=== PATIENT | female | born 1980 | race Caucasian/White ===

== ENCOUNTER 2017-12-02 15:53 | Emergency (ER) | payer OTHER, MEDICAID, SELFPAY ==
--- NOTE | 2017-12-02 16:14 | ED.ABDPAIN ---
HPI - Abdominal Pain General Chief Complaint: Abdominal Pain Stated Complaint: thinks blockage in abdomen Time Seen by Provider: 12/02/17 16:05 Source: patient Mode of arrival: ambulatory Limitations: no limitations History of Present Illness HPI narrative: Patient presents to the emergency department with a chief complaint 1 month of dysuria, frequency and urgency. Additionally she has generalized abdominal cramping and a sensation of vaginal fullness. She states she has had multiple visits and evaluations for suspected UTI, she has been on antibiotics without any resolution of symptoms. She states she does not think any of her urines have noted bacterial infection. She denies any chest pain shortness of breath or other. She has had no vaginal bleeding or discharge MD complaint: abdominal pain Onset (ago): hour(s) Pain Consistency: constant Location: diffuse Severity: mild Quality: cramping Radiation: none Migration to: no migration Relieving factors: nothing Exacerbating factors: nothing Context: recent surgery/procedure Associated symptoms: nausea Related Data Home Medications Medication Instructions Recorded Confirmed 5hpt 1 dose PO DAILY 12/02/17 12/02/17 Azo Bladder Control 1 dose PO DIRECTED 12/02/17 12/02/17 Turmeric Sootheeze 1 dose PO DIRECTED 12/02/17 12/02/17 ciprofloxacin HCl 500 mg PO BID 12/02/17 12/02/17 cranberry 1 cap PO DAILY 12/02/17 12/02/17 Allergies Allergy/AdvReac Type Severity Reaction Status Date / Time No Known Drug Allergies Allergy Verified 12/02/17 17:11 Review of Systems Review of Systems All systems reviewed & are unremarkable except as noted in HPI and below Constitutional Denies chills, Denies fever(s), Denies lethargy and Denies weakness Eyes Denies change in vision, Denies eye discharge, Denies irritation and Denies loss of vision ENT Ears, Nose, Mouth, and Throat: Denies change in voice, Denies neck pain and Denies sore throat Cardiovascular Denies chest pain, Denies irregular heart rhythm, Denies lightheadedness, Denies palpitations, Denies dyspnea, Denies dyspnea on exertion and Denies orthopnea Respiratory Denies cough, Denies dyspnea, Denies dyspnea on exertion and Denies wheezing Gastrointestinal Gastrointestinal: Reports abdominal pain, Reports change in bowel habits, Reports nausea and Denies vomiting Genitourinary Denies hematuria, Reports prolapse symptoms, Denies flank pain, Denies urinary incontinence and Reports urinary urgency Musculoskeletal Denies neck pain Integumentary/Breasts Denies pruritus, Denies erythema, Denies rash and Denies wounds Neurologic Denies confusion, Denies loss of vision and Denies weakness Psychiatric Denies anxiety, Denies confusion, Denies depression, Denies homicidal ideation and Denies suicidal ideation Endocrine Denies palpitations Hematologic/Lymphatic Denies easy bruising Allergic/Immunologic Denies wheezing [facility] Social History Smoking Status: Current every day smoker Exam Initial Vital Signs Initial Vital Signs: Vital Signs Temperature 98.4 F 12/02/17 16:23 Pulse Rate 104 H 12/02/17 16:23 Respiratory Rate 16 12/02/17 16:23 Blood Pressure 132/93 H 12/02/17 16:23 Pulse Oximetry 100 12/02/17 16:23 Const General: cooperative, well developed and in distress Nutritional Appearance: well nourished Orientation: alert, awake, oriented x3 and not confused HENMT Head: normocephalic and atraumatic Ears: external ears normal and TM's normal bilaterally Nose: external nose normal and No nasal discharge Face and sinus: sinuses nontender, face symmetric, no sinus tenderness and No dry mucous membranes Mouth: oral mucosae normal and moist mucous membranes Teeth and gingiva: dentition normal Throat: tonsils normal and uvula midline Eyes General: appearance normal, both eyes and all related structures Eyelids: eyelids normal Conjunctivae: conjunctivae normal Sclera: sclerae normal Pupils: PERRL EOM: EOM intact bilaterally Chest Chest: normal inspection of the chest Cardio Rate: regular rate Rhythm: regular rhythm Heart Sounds: no click, no gallops, no murmurs and no rubs Pulses: normal peripheral pulses GI Inspection: non-distended Palpation: soft, no hepatosplenomegaly, No guarding, No pulsatile mass and tender Auscultation: hypoactive bowel sounds Speculum Exam - Vagina: vaginal mass (suspect cystocele) Skin General: no rashes or lesions noted, No jaundice and No petechiae Extrem General: full ROM, no clubbing, cyanosis or edema, no pedal edema and no calf tenderness Course Orders Ordered: ED Orders 12/02/17 16:40 XR acute abdomen series Stat 12/02/17 17:10 Complete Blood Count AUTO DIFF Stat Comprehensive Metabolic Panel Stat Discontinued Medications Sodium Chloride (Normal Saline 0.9%) 1,000 mls @ 1,000 mls/hr IV BOLUS ONE Stop: 12/02/17 17:38 Last Admin: 12/02/17 17:10 Dose: 1,000 mls/hr Vital Signs - 8 hr 12/02/17 16:23 12/02/17 17:45 Temperature 98.4 F Pulse Rate 104 H 81 Respiratory Rate 16 18 Blood Pressure 132/93 H Blood Pressure [Right Arm] 114/64 Pulse Oximetry 100 100 MDM - Abdominal Pain Differential Diagnosis Differential diagnosis: Likely abdominal pain, constipation and gastroenteritis Medical Records Attestation: I reviewed the patient's medical records. Lab Data Attestation: I reviewed the patient's lab results. Result diagrams: 12/02/17 17:10 12/02/17 17:10 Lab Results 12/02/17 12/02/17 Range/Units 17:10 17:10 WBC 10.7 (4.5-11.0) X10^3/uL RBC 4.59 (4.0-5.2) X10^6/uL Hgb 14.0 (12.0-16.0) g/dL Hct 40.5 (36-46) % MCV 88.2 (80-100) fL MCH 30.5 (26-34) PG MCHC 34.6 (30-36) % RDW 13.4 (11.6-14.8) % Plt Count 349 (150-400) X10^3/uL Neut % (Auto) 69.7 (50-75) % Lymph % (Auto) 23.2 L (25-40) % [place] % (Auto) 4.0 (3-14) % Eos % (Auto) 2.2 (2-4) % Baso % (Auto) 0.9 (0-2) % Neut # (Auto) 7500 H (2400-6704) /uL Sodium 142 (137-145) mmol/L Potassium 4.0 (3.4-5.1) mmol/L Chloride 104 (98-107) mmol/L Carbon Dioxide 28 (22-32) mmol/L BUN 7 (7-17) mg/dL Creatinine 0.70 (0.52-1.04) mg/dL Estimated GFR > 60.0 (>60) mL/min BUN/Creatinine Ratio 10.0 (6-22) Glucose 88 (70-100) mg/dL Calcium 9.4 (8.4-10.2) mg/dL Total Bilirubin 0.7 (0.2-1.3) mg/dL AST 26 (14-36) IU/L ALT 31 (9-52) IU/L Alkaline Phosphatase 53 (38-126) U/L Total Protein 8.0 (6.3-8.2) g/dL Albumin 4.5 (3.5-5.0) g/dL Globulin 3.5 (1.7-4.1) g/dL Albumin/Globulin Ratio 1.3 (1.0-2.8) Point of care testing: Point of Care Testing Test Results Negative Urine Dip Bedside Urine Glucose Negative Bedside Urine Bilirubin - Negative Bedside Urine Ketone - Negative Urine Specific [place] 1.030 Bedside Urine Occult Blood + Bedside Urine pH 6.0 Bedside Urine Protein - Negative Bedside Urine Urobilinogen - Negative Bedside Urine Nitrite - Negative Bedside Urine Leukocytes - Negative Esterase Discharge Plan Departure Patient Disposition: Home Clinical Impression: Cystocele, Constipation Instructions: Cystocele/Rectocele Activity Restrictions/Additional Instructions: *You have been diagnosed with [ dysuria and likely cystocele with constipation ] *What to do: *Follow up with Dr. Jones in 2-3 days, call for an appointment. Let them know you were seen in the Emergency Department and that we ask that you be seen in follow up *Return to ER if you should have any new, worsening or concerning symptoms, such as [increasing pain, fever over 101 F, persistent vomiting, or other bothersome symptoms ] Prescriptions: No Action ciprofloxacin HCl 500 mg tablet 500 mg PO BID RF: 0 5hpt 1 dose PO DAILY RF: 0 Azo Bladder Control 1 dose PO DIRECTED RF: 0 cranberry 1 cap PO DAILY RF: 0 Turmeric Sootheeze 1 dose PO DIRECTED RF: 0 Referrals: Denise Jones MD [Primary Care Provider] -
[2017-12-02 16:23] VITALS: BP 132/93; PULSE 104; RESP 16; TEMP 36.9; O2SAT 100; BMI 48.5
--- NOTE | 2017-12-02 16:40 | DI.RAD.S_ITS ---
PROCEDURE: XR ACUTE ABDOMEN SERIES INDICATIONS: Abdominal pain TECHNIQUE: One view chest and two views of the abdomen were acquired. COMPARISON: None. FINDINGS: Surgical changes and devices: None. Chest: Lungs are clear. Heart size is normal. No pleural effusions. No pneumoperitoneum. Abdomen: Bowel gas pattern is normal. No suspicious calcifications. Visualized solid organ contours appear normal. Bones: No suspicious bony lesions. IMPRESSION: Nonspecific bowel gas pattern, and no definite acute disease. Dictated by: Darrel Taveras M.D. on 12/02/2017 at 17:01 Approved by: Darrel Taveras M.D. on 12/02/2017 at 17:01
[2017-12-02] MEDS: SODIUM CHLORIDE 0.9% 1,000 ML 1000 ML IV (17:10)
[2017-12-02 17:21] LABS: Add Manual Diff / Slide Review NO; Basophils Percent Auto 0.9 % (0-2); Eosinophils Percent Auto 2.2 % (2-4); Hematocrit 40.5 % (36-46); Lymphocytes Percent Auto 23.2 % (25-40); Mean Corpuscular HGB Conc 34.6 % (30-36); Mean Corpuscular Hemoglobin 30.5 PG (26-34); Mean Corpuscular Volume 88.2 fL (80-100); Neutrophils Absolute Auto 7500 /uL (3000-5900); Neutrophils Percent Auto 69.7 % (50-75); Platelet Count 349 X10^3/uL (150-400); Red Blood Cell Count 4.59 X10^6/uL (4.0-5.2); Red Cell Distribution Width 13.4 % (11.6-14.8); White Blood Cell Count 10.7 X10^3/uL (4.5-11.0)
[2017-12-02 17:30] LABS: Alanine Aminotransferase 31 IU/L (9-52); Albumin 4.5 g/dL (3.5-5.0); Albumin Globulin Ratio 1.3 (1.0-2.8); Alkaline Phosphatase 53 U/L (38-126); Aspartate Aminotransferase 26 IU/L (14-36); Bilirubin Total 0.7 mg/dL (0.2-1.3); Blood Urea Nitrogen 7 mg/dL (7-17); Calcium 9.4 mg/dL (8.4-10.2); Carbon Dioxide 28 mmol/L (22-32); Chloride 104 mmol/L (98-107); Estimated Glomerular Filt Rate > 60.0 mL/min (>60); Globulin 3.5 g/dL (1.7-4.1); Glucose 88 mg/dL (70-100); HEMOLYSIS 45 (0-50); Sodium 142 mmol/L (137-145)
[2017-12-02 17:45] VITALS: BP 114/64; PULSE 81; RESP 18; O2SAT 100
[2017-12-02 19:22] VITALS: BP 145/88; PULSE 87; RESP 16; TEMP 36.7; O2SAT 99
== END 2017-12-02 19:47 | disposition home or self-care (01) ==
PROVIDERS: Emergency Provider Emergency Medicine; PCP Obstetrics & Gynecology
DX: N81.10 Cystocele, unspecified (principal); K59.00 Constipation, unspecified
CPT/HCPCS: 36415; 36591; 74022; 80053; 81003; 81025; 85025; 96360; 99283; 99284

== ENCOUNTER 2018-02-19 12:00 | Emergency (ER) | payer OTHER, MEDICAID, SELFPAY ==
[2018-02-19 12:05] VITALS: BP 154/99; PULSE 93; RESP 20; TEMP 37.1; O2SAT 100; BMI 49.4
[2018-02-19 13:00] VITALS: BP 142/74; PULSE 78; O2SAT 100
--- NOTE | 2018-02-19 13:06 | DI.US.S_ITS ---
PROCEDURE: US PELVIC COMPLETE INDICATIONS: lower abd pain, bloating TECHNIQUE: Real-time scanning was performed of the pelvic organs, with image documentation. Additional endovaginal scanning was necessary due to incomplete visualization of the adnexal and endometrial structures by transabdominal scanning. COMPARISON: None. FINDINGS: Transabdominal scanning: Limited scanning through the kidneys shows no hydronephrosis. No pathologic free abdominal or pelvic fluid. Endovaginal scanning: Uterus: Uterus is normal in size at 10.7 x 5.1 x 7.4 cm. The endometrium measures 17 mm in combined thickness. Ovaries: Right ovary measures 3.1 x 2.1 x 2.1 cm. Left ovary measures 2.9 x 1.9 x 2.3 cm. Ovaries are grossly unremarkable IMPRESSION: Unremarkable examination as above. Dictated by: Nathaniel Osborn M.D. on 02/19/2018 at 14:13 Approved by: Nathaniel Osborn M.D. on 02/19/2018 at 14:15
[2018-02-19] MEDS: KETOROLAC 60 MG/2 ML VIAL IM (13:12)
[2018-02-19] MEDS: ONDANSETRON 4 MG ODT PO (13:13)
[2018-02-19 13:29] LABS: Add Manual Diff / Slide Review NO; Eosinophils Percent Auto 3.1 % (2-4); Hematocrit 40.8 % (36-46); Hemoglobin 13.9 g/dL (12.0-16.0); Lymphocytes Percent Auto 26.8 % (25-40); Mean Corpuscular HGB Conc 34.1 % (30-36); Mean Corpuscular Hemoglobin 28.9 PG (26-34); Mean Corpuscular Volume 84.9 fL (80-100); Monocytes Percent Auto 6.1 % (3-14); Neutrophils Absolute Auto 6200 /uL (3000-5900); Platelet Count 289 X10^3/uL (150-400); Red Cell Distribution Width 13.4 % (11.6-14.8); White Blood Cell Count 9.9 X10^3/uL (4.5-11.0)
[2018-02-19 13:45] LABS: Alanine Aminotransferase 26 IU/L (9-52); Albumin 4.4 g/dL (3.5-5.0); Albumin Globulin Ratio 1.3 (1.0-2.8); Alkaline Phosphatase 53 U/L (38-126); Amylase 59 U/L (30-110); Aspartate Aminotransferase 17 IU/L (14-36); BUN Creatinine Ratio 11.3 (6-22); Bilirubin Total 0.3 mg/dL (0.2-1.3); Blood Urea Nitrogen 9 mg/dL (7-17); Carbon Dioxide 29 mmol/L (22-32); Chloride 103 mmol/L (98-107); Estimated Glomerular Filt Rate > 60.0 mL/min (>60); Globulin 3.3 g/dL (1.7-4.1); Glucose 81 mg/dL (70-100); HEMOLYSIS < 15 (0-50); Lipase 54 U/L (23-300); Potassium 4.3 mmol/L (3.4-5.1); Sodium 144 mmol/L (137-145); Total Protein 7.7 g/dL (6.3-8.2)
--- NOTE | 2018-02-19 14:17 | ED.ABDPAIN ---
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 She states she is not sure if it is anxiety but she feels as though she cannot take the pain anymore. She states she had an in office ultrasound a few days ago and they found thickened endometrium. She states she is also being worked up for possible cervical cancer. She denies any fevers, nausea, vomiting, diarrhea. She complains of chills, lower belly bloating. She has not taken anything at home to feel better. She states her last bowel movement was this morning. She complains of dysuria but thinks it might be due to her prolapse. She denies any urgency or frequency or flank pain. Patient states she is passing gas. Related Data Home Medications Medication Instructions Recorded Confirmed 5hpt 1 dose PO DAILY 12/02/17 02/16/18 cranberry 1 cap PO DAILY 12/02/17 02/16/18 Previous Rx's Medication Instructions Recorded ondansetron 4 mg PO TID-QID PRN #14 tab 02/19/18 tramadol 50 mg PO Q6H PRN #10 tab 02/19/18 Allergies Allergy/AdvReac Type Severity Reaction Status Date / Time No Known Drug Allergies Allergy Verified 02/16/18 14:45 Review of Systems <LOIDA Monet - Last Filed: 02/19/18 15:54> Review of Systems GENERAL: Denies chills, fatigue, malaise, fever, sweats. HEENT: Denies sinus pain, ear pain, sore throat, difficulty swallowing, dizziness. RESPIRATORY: Denies dyspnea, cough, wheezing, hemoptysis, sputum. CARDIOVASCULAR: Denies chest pain, palpitations, orthopnea, edema, GASTROINTESTINAL: See HPI : See HPI MUSCULOSKELETAL: denies weakness, joint pain, or bony pain SKIN: Denies rash, skin lesions, or other NEUROLOGIC: Denies weakness, headache, numbness, change in speech, confusion, seizures, incoordination. PSYCHIATRIC: No concerning psychosocial issues. 12 point review of systems is negative except for those stated above Exam <ANTHONY Monet - Last Filed: 02/19/18 15:54> Narrative Exam Narrative: GENERAL: Obese female in no apparent distress HEAD: Atraumatic. Normocephalic. No temporal or scalp tenderness. EYES: Pupils equal round and reactive. Extraocular motions intact. No scleral icterus. No injection or drainage. ENT: Nose without bleeding, purulent drainage or septal hematoma. Throat without erythema, tonsillar hypertrophy or exudate. Uvula midline. Airway patent. NECK: Trachea midline. No JVD or lymphadenopathy. Supple, nontender, no meningeal signs. CARDIOVASCULAR: Regular rate and rhythm without murmurs, gallops, or rubs. RESPIRATORY: Clear to auscultation. Breath sounds equal bilaterally. No wheezes, rales, or rhonchi. No cough or accessory muscle use on exam. GASTROINTESTINAL: Abdomen soft, diffusely tender, nondistended. No hepato-splenomegaly, or palpable masses. No guarding. No pulsatile mass. Active bowel sounds all 4 quadrants. Pain to palpation suprapubic area, right lower quadrant, left lower quadrant. EXTREMITIES: No clubbing, cyanosis, or edema. No joint tenderness, effusion, or edema noted. BACK: Nontender without deformity or crepitance. No flank tenderness. NEURO: AOx3. SKIN: No rash or erythema. Initial Vital Signs Initial Vital Signs: Vital Signs Temperature 98.8 F 02/19/18 12:05 Pulse Rate 93 H 02/19/18 12:05 Respiratory Rate 20 02/19/18 12:05 Blood Pressure 154/99 H 02/19/18 12:05 Pulse Oximetry 100 02/19/18 12:05 <Zehra Mena DO - Last Filed: 02/22/18 08:45> Initial Vital Signs Initial Vital Signs: Vital Signs Temperature 98.8 F 02/19/18 12:05 Pulse Rate 93 H 02/19/18 12:05 Respiratory Rate 20 02/19/18 12:05 Blood Pressure 154/99 H 02/19/18 12:05 Pulse Oximetry 100 02/19/18 12:05 Course <ANTHONY Monet - Last Filed: 02/19/18 15:54> Orders Ordered: Discontinued Medications Ketorolac Tromethamine (Toradol) 60 mg IM NOW ONE Stop: 02/19/18 13:05 Last Admin: 02/19/18 13:12 Dose: 60 mg Ondansetron HCl (Zofran Odt) 4 mg PO NOW ONE Stop: 02/19/18 13:05 Last Admin: 02/19/18 13:13 Dose: 4 mg Tramadol HCl (Ultram) 50 mg PO NOW ONE Stop: 02/19/18 14:18 Last Admin: 02/19/18 14:31 Dose: 50 mg Vital Signs - 8 hr 02/19/18 12:05 02/19/18 13:00 02/19/18 14:42 Temperature 98.8 F Pulse Rate 93 H 78 79 Respiratory Rate 20 14 Blood Pressure 154/99 H Blood Pressure [Left Arm] 142/74 H 131/84 Pulse Oximetry 100 100 100 02/19/18 14:45 Temperature 98.2 F Pulse Rate 78 Respiratory Rate 21 Blood Pressure 131/84 Blood Pressure [Left Arm] Pulse Oximetry 100 <Zehra Mena DO - Last Filed: 02/22/18 08:45> Orders Ordered: Discontinued Medications Ketorolac Tromethamine (Toradol) 60 mg IM NOW ONE Stop: 02/19/18 13:05 Last Admin: 02/19/18 13:12 Dose: 60 mg Ondansetron HCl (Zofran Odt) 4 mg PO NOW ONE Stop: 02/19/18 13:05 Last Admin: 02/19/18 13:13 Dose: 4 mg Tramadol HCl (Ultram) 50 mg PO NOW ONE Stop: 02/19/18 14:18 Last Admin: 02/19/18 14:31 Dose: 50 mg Vital Signs - 8 hr 02/19/18 12:05 02/19/18 13:00 02/19/18 14:42 Temperature 98.8 F Pulse Rate 93 H 78 79 Respiratory Rate 20 14 Blood Pressure 154/99 H Blood Pressure [Left Arm] 142/74 H 131/84 Pulse Oximetry 100 100 100 02/19/18 14:45 Temperature 98.2 F Pulse Rate 78 Respiratory Rate 21 Blood Pressure 131/84 Blood Pressure [Left Arm] Pulse Oximetry 100 MDM - Abdominal Pain <ANTHONY Monet - Last Filed: 02/19/18 15:54> Lab Data Result diagrams: 02/19/18 13:25 02/19/18 13:25 Lab Results 02/19/18 02/19/18 Range/Units 13:25 13:25 WBC 9.9 (4.5-11.0) X10^3/uL RBC 4.80 (4.0-5.2) X10^6/uL Hgb 13.9 (12.0-16.0) g/dL Hct 40.8 (36-46) % MCV 84.9 (80-100) fL MCH 28.9 (26-34) PG MCHC 34.1 (30-36) % RDW 13.4 (11.6-14.8) % Plt Count 289 (150-400) X10^3/uL Neut % (Auto) 63.0 (50-75) % Lymph % (Auto) 26.8 (25-40) % Nash % (Auto) 6.1 (3-14) % Eos % (Auto) 3.1 (2-4) % Baso % (Auto) 1.0 (0-2) % Neut # (Auto) 6200 H (9047-9554) /uL Sodium 144 (137-145) mmol/L Potassium 4.3 (3.4-5.1) mmol/L Chloride 103 (98-107) mmol/L Carbon Dioxide 29 (22-32) mmol/L BUN 9 (7-17) mg/dL Creatinine 0.80 (0.52-1.04) mg/dL Estimated GFR > 60.0 (>60) mL/min BUN/Creatinine Ratio 11.3 (6-22) Glucose 81 (70-100) mg/dL Calcium 9.0 (8.4-10.2) mg/dL Total Bilirubin 0.3 (0.2-1.3) mg/dL AST 17 (14-36) IU/L ALT 26 (9-52) IU/L Alkaline Phosphatase 53 (38-126) U/L Total Protein 7.7 (6.3-8.2) g/dL Albumin 4.4 (3.5-5.0) g/dL Globulin 3.3 (1.7-4.1) g/dL Albumin/Globulin Ratio 1.3 (1.0-2.8) Amylase 59 (30-110) U/L Lipase 54 (23-300) U/L Point of care testing: Urine Dip Bedside Urine Glucose Negative Bedside Urine Bilirubin - Negative Bedside Urine Ketone - Negative Urine Specific [place] 1.015 Bedside Urine Occult Blood - Negative Bedside Urine pH 7.0 Bedside Urine Protein - Negative Bedside Urine Urobilinogen - Negative Bedside Urine Nitrite - Negative Bedside Urine Leukocytes - Negative Esterase Imaging Data pelvic US: Radiologist's impression: [address] [address] Ultrasound Report Signed Patient: Sophie Berg [facility]#: [id number] : 1980Acct:[id number] Age/Sex: 37 / FDate of Service: 02/19/18 Loc: ED Accession Number: [id number] Procedure: US pelvic complete Ordering Provider: Zehra Muniz WARRANT CLERK- PROCEDURE: US PELVIC COMPLETE INDICATIONS: lower abd pain, bloating TECHNIQUE: Real-time scanning was performed of the pelvic organs, with image documentation. Additional endovaginal scanning was necessary due to incomplete visualization of the adnexal and endometrial structures by transabdominal scanning. COMPARISON: None. FINDINGS: Transabdominal scanning: Limited scanning through the kidneys shows no hydronephrosis. No pathologic free abdominal or pelvic fluid. Endovaginal scanning: Uterus: Uterus is normal in size at 10.7 x 5.1 x 7.4 cm. The endometrium measures 17 mm in combined thickness. Ovaries: Right ovary measures 3.1 x 2.1 x 2.1 cm. Left ovary measures 2.9 x 1.9 x 2.3 cm. Ovaries are grossly unremarkable IMPRESSION: Unremarkable examination as above. Dictated by: Nathaniel Osborn M.D. on 02/19/2018 at 14:13 Approved by: Nathaniel Osborn M.D. on 02/19/2018 at 14:[address] [facility] Narrative Medical decision making narrative: Patient is a 37-year-old female who presents with chief complaint of lower abdominal bloating and pain. This is been going on for months but she feels worse over the past few days. She had normal CBC, CMP, amylase and lipase. She had a negative UA. Her pelvic ultrasound did not show any acute etiology. I did not perform a pelvic exam on this patient as she had one a few days ago. We discussed the possibility of STIs and she declined STI testing. Her primary care provider has been working up this sensation of bloating, and she has additional outpatient imaging ordered for Wednesday. I do not see any acute etiology today. Thus I discharged the patient home with a prescription of tramadol as well as Zofran for nausea. She is hemodynamically stable, nontoxic appearing, and acting well in the emergency department. Discussed return precautions of severe pain, acute concerns. <Zehra Mena, DO - Last Filed: 02/22/18 08:45> Lab Data Lab Results 02/19/18 02/19/18 Range/Units 13:25 13:25 WBC 9.9 (4.5-11.0) X10^3/uL RBC 4.80 (4.0-5.2) X10^6/uL Hgb 13.9 (12.0-16.0) g/dL Hct 40.8 (36-46) % MCV 84.9 (80-100) fL MCH 28.9 (26-34) PG MCHC 34.1 (30-36) % RDW 13.4 (11.6-14.8) % Plt Count 289 (150-400) X10^3/uL Neut % (Auto) 63.0 (50-75) % Lymph % (Auto) 26.8 (25-40) % Nash % (Auto) 6.1 (3-14) % Eos % (Auto) 3.1 (2-4) % Baso % (Auto) 1.0 (0-2) % Neut # (Auto) 6200 H (8720-9668) /uL Sodium 144 (137-145) mmol/L Potassium 4.3 (3.4-5.1) mmol/L Chloride 103 (98-107) mmol/L Carbon Dioxide 29 (22-32) mmol/L BUN 9 (7-17) mg/dL Creatinine 0.80 (0.52-1.04) mg/dL Estimated GFR > 60.0 (>60) mL/min BUN/Creatinine Ratio 11.3 (6-22) Glucose 81 (70-100) mg/dL Calcium 9.0 (8.4-10.2) mg/dL Total Bilirubin 0.3 (0.2-1.3) mg/dL AST 17 (14-36) IU/L ALT 26 (9-52) IU/L Alkaline Phosphatase 53 (38-126) U/L Total Protein 7.7 (6.3-8.2) g/dL Albumin 4.4 (3.5-5.0) g/dL Globulin 3.3 (1.7-4.1) g/dL Albumin/Globulin Ratio 1.3 (1.0-2.8) Amylase 59 (30-110) U/L Lipase 54 (23-300) U/L Point of care testing: Urine Dip Bedside Urine Glucose Negative Bedside Urine Bilirubin - Negative Bedside Urine Ketone - Negative Urine Specific [place] 1.015 Bedside Urine Occult Blood - Negative Bedside Urine pH 7.0 Bedside Urine Protein - Negative Bedside Urine Urobilinogen - Negative Bedside Urine Nitrite - Negative Bedside Urine Leukocytes - Negative Esterase Discharge Plan Departure Patient Disposition: Home Clinical Impression: Abdominal pain Discharge Date/Time: 02/19/18 14:47 Interventions: ED Discharge Assessment Last Done: 02/19/18 14:45 Instructions: DI for Abdominal Pain-Adult Activity Restrictions/Additional Instructions: I do not see any acute etiology today at this point time. Please follow-up with primary care provider regarding their continued imaging and workup. I have given her a small prescription of tramadol for pain. The aware this can make you constipated and sedating so please do not take it dry. I am giving Zofran as needed for nausea. Come back to emergency department for any acute pain, fever inability keep down fluids or any acute concerns. Please follow-up with your primary care provider. Prescriptions: New tramadol 50 mg tablet 50 mg PO Q6H PRN (Reason: pain) Qty: 10 RF: 0 ondansetron 4 mg tablet,disintegrating 4 mg PO TID-QID PRN (Reason: nausea and vomiting) Qty: 14 RF: 0 No Action 5hpt 1 dose PO DAILY RF: 0 cranberry 1 cap PO DAILY RF: 0 Referrals: Lindsey Tineo PA-C [Primary Care Provider] - <Zehra Mena DO - Last Filed: 02/22/18 08:45> Cosign ED Attending Cosignature Attestation: I was immediately available in the department for consultation. This documentation has been reviewed and I agree with assessment and plan. Supervised by Zehra Mena DO
--- NOTE | 2018-02-19 14:20 | ED_ITS ---
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 She states she is not sure if it is anxiety but she feels as though she cannot take the pain anymore. She states she had an in office ultrasound a few days ago and they found thickened endometrium. She states she is also being worked up for possible cervical cancer. She denies any fevers, nausea, vomiting, diarrhea. She complains of chills, lower belly bloating. She has not taken anything at home to feel better. She states her last bowel movement was this morning. She complains of dysuria but thinks it might be due to her prolapse. She denies any urgency or frequency or flank pain. Patient states she is passing gas. Related Data Home Medications Medication Instructions Recorded Confirmed 5hpt 1 dose PO DAILY 12/02/17 02/16/18 cranberry 1 cap PO DAILY 12/02/17 02/16/18 Previous Rx's Medication Instructions Recorded ondansetron 4 mg PO TID-QID PRN #14 tab 02/19/18 tramadol 50 mg PO Q6H PRN #10 tab 02/19/18 Allergies Allergy/AdvReac Type Severity Reaction Status Date / Time No Known Drug Allergies Allergy Verified 02/16/18 14:45 Review of Systems <LOIDA Monet - Last Filed: 02/19/18 15:54> Review of Systems GENERAL: Denies chills, fatigue, malaise, fever, sweats. HEENT: Denies sinus pain, ear pain, sore throat, difficulty swallowing, dizziness. RESPIRATORY: Denies dyspnea, cough, wheezing, hemoptysis, sputum. CARDIOVASCULAR: Denies chest pain, palpitations, orthopnea, edema, GASTROINTESTINAL: See HPI : See HPI MUSCULOSKELETAL: denies weakness, joint pain, or bony pain SKIN: Denies rash, skin lesions, or other NEUROLOGIC: Denies weakness, headache, numbness, change in speech, confusion, seizures, incoordination. PSYCHIATRIC: No concerning psychosocial issues. 12 point review of systems is negative except for those stated above Exam <ANTHONY Monet - Last Filed: 02/19/18 15:54> Narrative Exam Narrative: GENERAL: Obese female in no apparent distress HEAD: Atraumatic. Normocephalic. No temporal or scalp tenderness. EYES: Pupils equal round and reactive. Extraocular motions intact. No scleral icterus. No injection or drainage. ENT: Nose without bleeding, purulent drainage or septal hematoma. Throat without erythema, tonsillar hypertrophy or exudate. Uvula midline. Airway patent. NECK: Trachea midline. No JVD or lymphadenopathy. Supple, nontender, no meningeal signs. CARDIOVASCULAR: Regular rate and rhythm without murmurs, gallops, or rubs. RESPIRATORY: Clear to auscultation. Breath sounds equal bilaterally. No wheezes , rales, or rhonchi. No cough or accessory muscle use on exam. GASTROINTESTINAL: Abdomen soft, diffusely tender, nondistended. No hepato- splenomegaly, or palpable masses. No guarding. No pulsatile mass. Active bowel sounds all 4 quadrants. Pain to palpation suprapubic area, right lower quadrant , left lower quadrant. EXTREMITIES: No clubbing, cyanosis, or edema. No joint tenderness, effusion, or edema noted. BACK: Nontender without deformity or crepitance. No flank tenderness. NEURO: AOx3. SKIN: No rash or erythema. Initial Vital Signs Initial Vital Signs: Vital Signs Temperature 98.8 F 02/19/18 12:05 Pulse Rate 93 H 02/19/18 12:05 Respiratory Rate 20 02/19/18 12:05 Blood Pressure 154/99 H 02/19/18 12:05 Pulse Oximetry 100 02/19/18 12:05 <Zehra Mena DO - Last Filed: 02/22/18 08:45> Initial Vital Signs Initial Vital Signs: Vital Signs Temperature 98.8 F 02/19/18 12:05 Pulse Rate 93 H 02/19/18 12:05 Respiratory Rate 20 02/19/18 12:05 Blood Pressure 154/99 H 02/19/18 12:05 Pulse Oximetry 100 02/19/18 12:05 Course <ANTHONY Monet - Last Filed: 02/19/18 15:54> Orders Ordered: Discontinued Medications Ketorolac Tromethamine (Toradol) 60 mg IM NOW ONE Stop: 02/19/18 13:05 Last Admin: 02/19/18 13:12 Dose: 60 mg Ondansetron HCl (Zofran Odt) 4 mg PO NOW ONE Stop: 02/19/18 13:05 Last Admin: 02/19/18 13:13 Dose: 4 mg Tramadol HCl (Ultram) 50 mg PO NOW ONE Stop: 02/19/18 14:18 Last Admin: 02/19/18 14:31 Dose: 50 mg Vital Signs - 8 hr 02/19/18 12:05 02/19/18 13:00 02/19/18 14:42 Temperature 98.8 F Pulse Rate 93 H 78 79 Respiratory Rate 20 14 Blood Pressure 154/99 H Blood Pressure [Left Arm] 142/74 H 131/84 Pulse Oximetry 100 100 100 02/19/18 14:45 Temperature 98.2 F Pulse Rate 78 Respiratory Rate 21 Blood Pressure 131/84 Blood Pressure [Left Arm] Pulse Oximetry 100 <Zehra Mena DO - Last Filed: 02/22/18 08:45> Orders Ordered: Discontinued Medications Ketorolac Tromethamine (Toradol) 60 mg IM NOW ONE Stop: 02/19/18 13:05 Last Admin: 02/19/18 13:12 Dose: 60 mg Ondansetron HCl (Zofran Odt) 4 mg PO NOW ONE Stop: 02/19/18 13:05 Last Admin: 02/19/18 13:13 Dose: 4 mg Tramadol HCl (Ultram) 50 mg PO NOW ONE Stop: 02/19/18 14:18 Last Admin: 02/19/18 14:31 Dose: 50 mg Vital Signs - 8 hr 02/19/18 12:05 02/19/18 13:00 02/19/18 14:42 Temperature 98.8 F Pulse Rate 93 H 78 79 Respiratory Rate 20 14 Blood Pressure 154/99 H Blood Pressure [Left Arm] 142/74 H 131/84 Pulse Oximetry 100 100 100 02/19/18 14:45 Temperature 98.2 F Pulse Rate 78 Respiratory Rate 21 Blood Pressure 131/84 Blood Pressure [Left Arm] Pulse Oximetry 100 MDM - Abdominal Pain <ANTHONY Monet - Last Filed: 02/19/18 15:54> Lab Data Result diagrams: 02/19/18 13:25 02/19/18 13:25 Lab Results 02/19/18 02/19/18 Range/Units 13:25 13:25 WBC 9.9 (4.5-11.0) X10^3/uL RBC 4.80 (4.0-5.2) X10^6/uL Hgb 13.9 (12.0-16.0) g/dL Hct 40.8 (36-46) % MCV 84.9 (80-100) fL MCH 28.9 (26-34) PG MCHC 34.1 (30-36) % RDW 13.4 (11.6-14.8) % Plt Count 289 (150-400) X10^3/uL Neut % (Auto) 63.0 (50-75) % Lymph % (Auto) 26.8 (25-40) % Lynn % (Auto) 6.1 (3-14) % Eos % (Auto) 3.1 (2-4) % Baso % (Auto) 1.0 (0-2) % Neut # (Auto) 6200 H (2800-5483) /uL Sodium 144 (137-145) mmol/L Potassium 4.3 (3.4-5.1) mmol/L Chloride 103 (98-107) mmol/L Carbon Dioxide 29 (22-32) mmol/L BUN 9 (7-17) mg/dL Creatinine 0.80 (0.52-1.04) mg/dL Estimated GFR > 60.0 (>60) mL/min BUN/Creatinine Ratio 11.3 (6-22) Glucose 81 (70-100) mg/dL Calcium 9.0 (8.4-10.2) mg/dL Total Bilirubin 0.3 (0.2-1.3) mg/dL AST 17 (14-36) IU/L ALT 26 (9-52) IU/L Alkaline Phosphatase 53 (38-126) U/L Total Protein 7.7 (6.3-8.2) g/dL Albumin 4.4 (3.5-5.0) g/dL Globulin 3.3 (1.7-4.1) g/dL Albumin/Globulin Ratio 1.3 (1.0-2.8) Amylase 59 (30-110) U/L Lipase 54 (23-300) U/L Point of care testing: Urine Dip Bedside Urine Glucose Negative Bedside Urine Bilirubin - Negative Bedside Urine Ketone - Negative Urine Specific [place] 1.015 Bedside Urine Occult Blood - Negative Bedside Urine pH 7.0 Bedside Urine Protein - Negative Bedside Urine Urobilinogen - Negative Bedside Urine Nitrite - Negative Bedside Urine Leukocytes - Negative Esterase Imaging Data pelvic US: Radiologist's impression: [address] [address] Ultrasound Report Signed Patient: Sophie Berg [facility], [place]#: [id number] : 1980Acct:[id number] Age/Sex: 37 / FDate of Service: 02/19/18 Loc: ED Accession Number: [id number] Procedure: US pelvic complete Ordering Provider: Zehra Muniz AIRCRAFT PAINTER APPRENTICE- PROCEDURE: US PELVIC COMPLETE INDICATIONS: lower abd pain, bloating TECHNIQUE: Real-time scanning was performed of the pelvic organs, with image documentation. Additional endovaginal scanning was necessary due to incomplete visualization of the adnexal and endometrial structures by transabdominal scanning. COMPARISON: None. FINDINGS: Transabdominal scanning: Limited scanning through the kidneys shows no hydronephrosis. No pathologic free abdominal or pelvic fluid. Endovaginal scanning: Uterus: Uterus is normal in size at 10.7 x 5.1 x 7.4 cm. The endometrium measures 17 mm in combined thickness. Ovaries: Right ovary measures 3.1 x 2.1 x 2.1 cm. Left ovary measures 2.9 x 1.9 x 2.3 cm. Ovaries are grossly unremarkable IMPRESSION: Unremarkable examination as above. Dictated by: Nathaniel Osborn M.D. on 02/19/2018 at 14:13 Approved by: Nathaniel Osborn M.D. on 02/19/2018 at 14:15 [facility] Narrative Medical decision making narrative: Patient is a 37-year-old female who presents with chief complaint of lower abdominal bloating and pain. This is been going on for months but she feels worse over the past few days. She had normal CBC, CMP, amylase and lipase. She had a negative UA. Her pelvic ultrasound did not show any acute etiology. I did not perform a pelvic exam on this patient as she had one a few days ago. We discussed the possibility of STIs and she declined STI testing. Her primary care provider has been working up this sensation of bloating, and she has additional outpatient imaging ordered for Wednesday. I do not see any acute etiology today. Thus I discharged the patient home with a prescription of tramadol as well as Zofran for nausea. She is hemodynamically stable, nontoxic appearing, and acting well in the emergency department. Discussed return precautions of severe pain, acute concerns. <Zehra Mena, DO - Last Filed: 02/22/18 08:45> Lab Data Lab Results 02/19/18 02/19/18 Range/Units 13:25 13:25 WBC 9.9 (4.5-11.0) X10^3/uL RBC 4.80 (4.0-5.2) X10^6/uL Hgb 13.9 (12.0-16.0) g/dL Hct 40.8 (36-46) % MCV 84.9 (80-100) fL MCH 28.9 (26-34) PG MCHC 34.1 (30-36) % RDW 13.4 (11.6-14.8) % Plt Count 289 (150-400) X10^3/uL Neut % (Auto) 63.0 (50-75) % Lymph % (Auto) 26.8 (25-40) % Lynn % (Auto) 6.1 (3-14) % Eos % (Auto) 3.1 (2-4) % Baso % (Auto) 1.0 (0-2) % Neut # (Auto) 6200 H (1640-9852) /uL Sodium 144 (137-145) mmol/L Potassium 4.3 (3.4-5.1) mmol/L Chloride 103 (98-107) mmol/L Carbon Dioxide 29 (22-32) mmol/L BUN 9 (7-17) mg/dL Creatinine 0.80 (0.52-1.04) mg/dL Estimated GFR > 60.0 (>60) mL/min BUN/Creatinine Ratio 11.3 (6-22) Glucose 81 (70-100) mg/dL Calcium 9.0 (8.4-10.2) mg/dL Total Bilirubin 0.3 (0.2-1.3) mg/dL AST 17 (14-36) IU/L ALT 26 (9-52) IU/L Alkaline Phosphatase 53 (38-126) U/L Total Protein 7.7 (6.3-8.2) g/dL Albumin 4.4 (3.5-5.0) g/dL Globulin 3.3 (1.7-4.1) g/dL Albumin/Globulin Ratio 1.3 (1.0-2.8) Amylase 59 (30-110) U/L Lipase 54 (23-300) U/L Point of care testing: Urine Dip Bedside Urine Glucose Negative Bedside Urine Bilirubin - Negative Bedside Urine Ketone - Negative Urine Specific [place] 1.015 Bedside Urine Occult Blood - Negative Bedside Urine pH 7.0 Bedside Urine Protein - Negative Bedside Urine Urobilinogen - Negative Bedside Urine Nitrite - Negative Bedside Urine Leukocytes - Negative Esterase Discharge Plan Departure Patient Disposition: Home Clinical Impression: Abdominal pain Discharge Date/Time: 02/19/18 14:47 Interventions: ED Discharge Assessment Last Done: 02/19/18 14:45 Instructions: DI for Abdominal Pain-Adult Activity Restrictions/Additional Instructions: I do not see any acute etiology today at this point time. Please follow-up with primary care provider regarding their continued imaging and workup. I have given her a small prescription of tramadol for pain. The aware this can make you constipated and sedating so please do not take it dry. I am giving Zofran as needed for nausea. Come back to emergency department for any acute pain, fever inability keep down fluids or any acute concerns. Please follow-up with your primary care provider. Prescriptions: New tramadol 50 mg tablet 50 mg PO Q6H PRN (Reason: pain) Qty: 10 RF: 0 ondansetron 4 mg tablet,disintegrating 4 mg PO TID-QID PRN (Reason: nausea and vomiting) Qty: 14 RF: 0 No Action 5hpt 1 dose PO DAILY RF: 0 cranberry 1 cap PO DAILY RF: 0 Referrals: Lindsey Tineo PA-C [Primary Care Provider] - <Zehra Mena DO - Last Filed: 02/22/18 08:45> Cosign ED Attending Cosignature Attestation: I was immediately available in the department for consultation. This documentation has been reviewed and I agree with assessment and plan. Supervised by Zehra Mena DO
[2018-02-19] MEDS: TRAMADOL 50 MG TABLET PO (14:31)
[2018-02-19 14:42] VITALS: BP 131/84; PULSE 79; RESP 14; O2SAT 100
[2018-02-19 14:45] VITALS: BP 131/84; PULSE 78; RESP 21; TEMP 36.8; O2SAT 100
== END 2018-02-19 14:47 | disposition home or self-care (01) ==
PROVIDERS: Emergency Provider Nurse Practitioner Family; Family Provider Physician Assistant; PCP Physician Assistant
DX: R10.9 Unspecified abdominal pain (principal)
CPT/HCPCS: 36415; 76830; 76856; 80053; 81003; 82150; 83690; 85025; 96372; 99283; 99284; J1885

== ENCOUNTER 2018-03-28 08:48 | Day surgery (SDC) | payer OTHER, MEDICAID, SELFPAY ==
[2018-03-23 12:16] VITALS: BMI 48.0
--- NOTE | 2018-03-28 | PATH_ITS ---
[facility] Accession Number: [id number] . 01 Material submitted: . ENDOMETRIAL CURETTINGS . 02 Diagnosis: Endometrium, Curettage: Late secretory endometrium with features of endometrial polyp. Negative for atypical hyperplasia or malignancy. [facility]/03/29/2018 . 02 Electronically signed: . Jose Desir MD, PhD, Pathologist NPI- [id number] . 01 Gross description: . Received one formalin-filled container labeled with the patient's name and labeled endometrial curettings. The specimen consists of approximately a 1 cc aggregate of tissue, mucoid material, and blood, which is filtered, wrapped, and entirely submitted in one cassette. ([id number]) /FRR . 02 Pathologist provided ICD-10: N93.9 . 02 CPT . 848134 Performed at: 01 [facility] [address] [id number] MD Troy Laureano MD Phone: [phone] Performed at: 02 [facility] [address] [place], [place] [id number] MD Haylee Tierney MD Phone: [phone]
[2018-03-28] MEDS: LACTATED RINGERS 1,000 ML 100 ML IV (09:05)
[2018-03-28 09:06] VITALS: BP 127/78; PULSE 80; RESP 16; TEMP 36.6; O2SAT 97; BMI 47.7
--- NOTE | 2018-03-28 09:41 | PM.PREOP ---
Pre-operative Note Interval Note Pre-op Check: Yes History & Physical exam performed today by Physician Changes: No
--- NOTE | 2018-03-28 09:41 | PM.HP.1 ---
History of Present Illness Date Patient Seen: 03/28/18 Time Patient Seen: 09:42 Chief complaint: [id number] Narrative: Patient is a 37-year-old with abnormal uterine bleeding and a thickened endometrial lining for D&C hysteroscopy Patient History Medical History Cystocele (Acute) Mild cervical dysplasia (Acute) S/P tubal ligation (Resolved) Surgical History History of colposcopy (Acute) Family & Social History Social History: household members significant other Tobacco & Substance use: Smoking Status Current every day smoker alcohol intake frequency holiday/special occasion Substance Use Type does not use Meds Home Medications Medication Instructions Recorded Confirmed Type amoxicillin 875 mg PO BID 03/28/18 03/28/18 History hydrochlorothiazide 25 mg PO DAILY 03/28/18 03/28/18 History Allergies Allergy/AdvReac Type Severity Reaction Status Date / Time No Known Drug Allergies Allergy Verified 02/16/18 14:45 Exam Vital Signs (past 8 hours): - 03/28/18 09:06 Temperature 97.8 F Pulse Rate 80 Respiratory Rate 16 Blood Pressure 127/78 Pulse Oximetry 97 Oxygen Delivery Method Room Air Narrative Exam Narrative: HEENT: No thyromegaly, no anterior cervical or supraclavicular lymphadenopathy. Lungs:Clear to auscultation bilaterally, no wheezes. Cardiovascular: Regular rate and rhythm, no murmurs, rubs, or gallops. Abdomen: No scars. No hepatosplenomegaly. No masses palpable. External genitalia: Normal Vagina: Normal Cervix: Normal Bimanual exam: 8 Week size uterus. Mobile. Rectal: No masses. Assessment & Plan (1) Abnormal uterine bleeding: Current visit: Yes Status: Acute Plan: Assessment/Plan Narrative: Assessment: 37 year old with abnormal uterine bleeding and thickened endometrial lining Plan D&C hysteroscopy The risks, benefits, and alternatives to the procedure were explained to the patient. The risks including bleeding, infection or uterine perforation. She understands these risks and agrees to proceed. A full PAR-Q was held and consent form was signed.
--- NOTE | 2018-03-28 10:14 | SUR.OPER ---
Lithotomy on padded OR bed, head on pillow, arms secured on padded arm boards at <90 degrees abduction. Legs secured in padded yellow fins stirrups.
[2018-03-28 10:25] VITALS: BP 138/96; PULSE 99; RESP 14; TEMP 36.4; O2SAT 95
[2018-03-28 10:30] VITALS: BP 134/89; PULSE 83; RESP 16; O2SAT 95
[2018-03-28 10:35] VITALS: BP 135/86; PULSE 84; RESP 14; TEMP 36.2; O2SAT 94
[2018-03-28 10:40] VITALS: BP 129/84; PULSE 80; RESP 13; TEMP 36.3; O2SAT 94
[2018-03-28] MEDS: OXYCODONE/ACETAMINOPHEN 5/325 TABLET 1 TAB PO (11:06)
[2018-03-28] MEDS: LORazepam 2 MG/ML SYRINGE 0.5 MG IV (11:09)
[2018-03-28 11:20] VITALS: BP 112/68; PULSE 72; RESP 16; TEMP 36.8; O2SAT 100
--- NOTE | 2018-03-28 12:27 | SUR.PHASEII ---
pt was essentially ready to go home at 1120 but asked to stay a while for medications to be filled and to have less time to wait for ferrludin
--- NOTE | 2018-03-29 06:14 | PM.GYNOP.1 ---
Operative Date/Time/Diagnoses Date of procedure: 03/28/18 Time of procedure: 10:45 Pre-op diagnosis: Menometrorrhagia Thickened endometrial lining Post-op diagnosis: same Procedure: Procedures Operation Date: 03/28/18 10:00 Actual Procedures Side Surgeon p Hysteroscopy D&C Denise Jones MD Indications: Menometrorrhagia Thickened endometrial lining on ultrasound Surgeon: Denise Jones Anesthesia Type: General (LMA) Operative Notes Findings: 8 week size anteverted uterus Both fallopian tube ostia observed Thickened endometrial lining Closure Type: not applicable Specimen(s): endometrial curettings Estimated blood loss (mL): 10 Blood products transfused: none Procedure in detail: After informed consent was obtained, the patient was taken to the operating room where she was placed in the dorsal supine position. After adequate LMA general anesthesia was achieved, she was placed in the dorsal lithotomy position, and prepped and draped in the usual sterile fashion. A time-out was performed. A bivalve speculum was placed into the vagina and the anterior lip of the cervix grasped with a single-tooth tenaculum. The cervical os was sequentially dilated until the hysteroscope could pass easily into the endometrial cavity. Initial inspection with the hysteroscope revealed both fallopian tube ostia. There was a thickened endometrial lining. The hysteroscope was removed. Sharp curettage was performed yielding a large amount of endometrial curettings. The instruments were removed from the uterus. The single-tooth tenaculum was removed from the anterior lip of the cervix. [place] speculum was removed from the vagina. Sponge, lap, and instrument counts were correct x2. Patient tolerated the procedure well, and was taken to PACU in stable condition. Complications: none Post-operative Condition: stable Disposition: PACU Plan for aftercare: Home after recovery
== END 2018-03-28 12:10 | disposition home or self-care (01) ==
PROVIDERS: Family Provider Physician Assistant; PCP Physician Assistant; Visit Provider Obstetrics & Gynecology
PROC: 0UDB8ZZ Extraction of Endometrium, Via Natural or Artificial Opening Endoscopic (ICD-10-PCS; CPT 58558; principal; 2018-03-28 10:00)
DX: N92.1 Excessive and frequent menstruation with irregular cycle (principal); R93.89 Abnormal findings on diagnostic imaging of other specified body structures; F17.210 Nicotine dependence, cigarettes, uncomplicated
CPT/HCPCS: 58558; J1100; J1885; J2060; J2250; J2405; J2704; J3010

== ENCOUNTER → 2018-04-20 11:24 | Outpatient (CLI) | payer OTHER, MEDICAID, SELFPAY ==
--- NOTE | 2018-04-20 | DI.MRI.S_ITS ---
PROCEDURE: MR ABDOMEN WO/W CON INDICATIONS: LIVER NODULE SEEN ON ABD CT 02/21/18 TECHNIQUE: Coronal HASTE, axial 2D FLASH in- and [id number]; axial breath-hold T2 FSE. Dynamic axial VIBE during the administration of contrast; post-contrast coronal VIBE or 2D FLASH with fat saturation from the hepatic dome to the iliac crests. Optional diffusion weighted imaging and ADC may be performed. COMPARISON: Outside Facility, RG, CT ABDOMEN/PELVIS WITH CONTRAST, 02/21/2018, 11:05. FINDINGS: Image quality: Excellent. Lung bases: No basal pleural effusions. Heart size is normal. Solid organs: Liver is normal in size and enhancement except for presence of the right posterior hepatic segment hypoenhancing structure with elevated T2 and diffusion signal, morphologically most likely represent a small 1.8 cm hemangioma. A second smaller similar structure is seen at the subcapsular left lateral hepatic segment, with low-level internal enhancement also likely a small hemangioma. Gallbladder appears normal. Biliary system is non dilated. Pancreas is normal in morphology. Spleen is normal in size and enhancement. No adrenal nodules. Both kidneys demonstrate normal size and enhancement, without hydronephrosis. Nodes and vessels: No retroperitoneal or mesenteric adenopathy by size criteria. Aorta and inferior vena cava are normal in size. Bowel and peritoneum: Unenhanced bowel loops are normal in caliber. No free fluid. Bones and soft tissues: No ventral hernias. Bone marrow is normal in overall signal. IMPRESSION: The 1.8 cm diameter right posterior hepatic segment hypodensity seen by prior CT scanning from February of this last year can be seen by MR scanning and shows imaging characteristics suggestive of but not definitively diagnostic of a benign hepatic hemangioma as the underlying cause. A similar but significantly smaller structure measuring approximately 7 x 8 mm is seen at the anterior border of the left lateral hepatic segment, subcapsular. This does show internal enhancement on delayed phase venous imaging and likely also is a hemangioma. In this position this small structure may not be identifiable by ultrasound. Followup ultrasound assessment to confirm stability of size over time is recommended in 3-6 months, and this ultrasound assessment also would be expected to provide sonographic imaging characterization supportive of a diagnosis of hemangioma. Dictated by: Darrel Taveras M.D. on 04/20/2018 at 12:38 Approved by: Darrel Taveras M.D. on 04/20/2018 at 12:51
== END ==
PROVIDERS: Family Provider Physician Assistant; PCP Physician Assistant; Visit Provider Family Medicine
DX: K76.89 Other specified diseases of liver (principal)
CPT/HCPCS: 74183; A9579

== ENCOUNTER 2018-04-22 13:45 | Outpatient (RCR) | payer OTHER, MEDICAID, SELFPAY ==
--- NOTE | 2018-01-26 15:00 | PT.OIE ---
Current Diagnoses Uterovaginal prolapse, unspecified (01/25/18) Female genital prolapse, unspecified (01/25/18) Pelvic and perineal pain (01/25/18) Past Medical History (Last Updated 01/25/18 @ 16:25 by Lachelle Plasencia) S/P tubal ligation (Resolved) Provider Visit Care Team Role Provider Type Lindsey Tineo PA-C Family Provider Non-Staff Primary Care Provider Specialty: Medical Address: [address] [place] [address], [id number] Email: Denise Jones MD Attending Provider Physician Specialty: DISTRICT ATTORNEY Address: [address] [place] [address], [id number] Email: [email or web address] Physical Therapy Initial Evaluation PT-OP-A Visit Information Start: 01/26/18 07:38 Freq: Status: Active Protocol: Document 01/25/18 11:15 AMB (Rec: 01/26/18 07:59 AMB [email or web address]) Out-Patient Physical Therapy Visit Information Visit Information Visit Type Initial Evaluation Visit Start Time 11:15 Visit Stop Time 12:15 Total Visit Minutes 60 Visit Number 1 Evaluation Information Evaluation Date 01/26/18 PT-OP-B Current Condition Start: 01/26/18 07:38 Freq: Status: Active Protocol: Document 01/25/18 11:15 AMB (Rec: 01/26/18 07:59 AMB [email or web address]) Current Condition History of Current Condition Onset Date 2 years Current Complaints pelvic pain, frequent urination with urgency, History of Current Condition The patient reports until 5 months ago, she was using alcohol every day. She thought that her symptoms were because of that, but she has been abstaining from alcohol, and she continues to have pain and urinary frequency and urgency. She had a vaginal 8 years ago with tearing , and a tubal ligation 6 years ago. She thinks the symptoms started about 5 years ago but have been worsening. Her pain is abdominal in nature, with back pain and upper leg weakness. She reports she urinates every 45 minutes or else her pain increases (she can hold it longer than that but her pain increases). She notes stress incontinence symptoms (small leaks throughout the day with cough sneeze, worse with full bladder). She also reports painful intercourse- burning at the perineum and a deep ache abdominally. Treatment Goals Patient/Caregiver Goals Relieve pain, decrease urination Prior Functional Status Baseline Function- ADL's Independent Baseline Function- Mobility Independent Current Functional Impairments (Reported) Functional Limitations- ADL's Painful intercourse, frequent urination Personal Factors Other Personal Factors That May Effect Pt lives on [facility], BMI Therapy/Recovery 47.8 PT-OP-C Subjective Start: 01/26/18 07:38 Freq: Status: Active Protocol: Document 01/25/18 11:15 AMB (Rec: 01/26/18 14:39 AMB [email or web address]) OP-PT Subjective Patient Comments Patient Comments Pt reports heavy periods and recent abnormal pap Patient Questionnaires Pelvic Pain and Urgency/Frequency Patient Symptom Scale Pelvic Pain Score 28 OP-PT Pain Assessment Location Abdomen Intensity 4 Scale Used Numeric (1 - 10) Comments Pain Comments Pain with palpation 6/10. PT-OP-I Pelvic Floor Start: 01/26/18 07:38 Freq: Status: Active Protocol: Document 01/25/18 11:15 AMB (Rec: 01/26/18 14:32 AMB [email or web address]) Pelvic Floor Assessment Urine Pelvic Floor Surgery Yes: tubal ligation Urinary Symptoms Dysuria Urge Sensation Prolapse Incomplete Emptying Falling Out Feeling/Heavy Pain Leakage Size Small Leakage Cause Cough Sneeze Urge Leaks Per Day constant Voiding Frequency every 45 min Nocturia 4 Pads Used In 24 Hours 0 Bowel Bowel Movement Frequency 3-4x/day Emmons Stool Chart Type 1-7 4 Pelvic Clock Pelvic Clock 12-3 Tenderness Pelvic Clock 3-6 Tenderness Pelvic Clock 6-9 Tenderness Pelvic Clock 9-12 Tenderness Pelvic Clock Other pelvic floor is low in tone throughout Prolapse Cystocele Grade 2 Rectocele Grade 2 Prolapse Comments Descends with valsalva Perineal Descent Resting Present Bearing Present SEMG (uV) Baseline 4 Quick Contraction 6 Recruitment Pattern Poor/Slow Relaxation Good Stability of Hold Fair SEMG Stability of Rest Good Contraction Ability Voluntary Contraction Weak Voluntary Relaxation Moderate Manual Muscle Testing Left 1 Manual Muscle Testing Right 1 Manual Muscle Testing Anterior 1 Manual Muscle Testing Posterior 3 Muscle Endurance (Seconds) 3 PT-OP-J Posture/Palpation/Skin Start: 01/26/18 07:38 Freq: Status: Active Protocol: Document 01/25/18 11:15 AMB (Rec: 01/26/18 14:32 AMB [email or web address]) Palpation Assessment Location One Palpation Location Abdomen Palpation Findings Spasm Muscle Guarding Tenderness Palpation Details Tenderness laterally on abdomen PT-OP-T Assessment and Plan Start: 01/26/18 07:38 Freq: Status: Active Protocol: Document 01/25/18 11:15 AMB (Rec: 01/26/18 14:58 AMB [email or web address]) Physical Therapy Assessment Rehab Potential Rehabilitation Potential Good Evaluation Complexity Number of Personal Factors/Comorbidities 1-2 Number of Body Systems Impaired 4 or More Clinical Presentation at Evaluation Evolving Impairments Impairments Functional Activities Pain Soft Tissue Mobility Strength Goals Three Impairment Strength Short Term Goal (STG) The patient will be independent with a pelvic floor strengthening HEP. STG Duration 6 weeks Retirement Goal (LTG) The patient will show improved strength so that Two Impairment Continence Short Term Goal (STG) The patient will improve her continence so that she can cough without leaking. STG Duration 6 weeks Coin Machine Collector Goal (LTG) The patient will decrease her nocturia to 1x/night or less. LTG Duration 12 weeks One Impairment Pain Short Term Goal (STG) The patient will hold her bladder for 2 hours with 4/10 pain or less. STG Duration 6 weeks Retirement Goal (LTG) The patient will engage in sexual activity without urinary leakage and with pain of 4/10 or less. LTG Duration 12 weeks Assessment Summary Assessment Sophie attends physical therapy with multiple pelvic floor concerns including pelvic pain that radiates into her abdomen, prolapse, painful intercourse, urinary frequency , and stress incontinence. She presents with poor pelvic floor strength and endurance. Her abdominal pain is reproduced both by palpation to her posterior pelvic floor and to palpation of her abdomen. She will benefit from pelvic floor and hip stability training with manual therapy to reduce her pain. Her weight and the distance she lives from the PT clinic may be limiting factors. Physical Therapy Plan Frequency and Duration Frequency of Treatment 1x/Week Duration of Treatment 12 weeks Plan of Care Start Date 01/25/18 Plan of Care End Date 04/19/18 Therapeutic Interventions Therapeutic Interventions Home Exercise Program Manual Therapy Neuromuscular Re-education Self-Care/Home Management Soft Tissue Mobilization Therapeutic Activities Therapeutic Exercises Modalities Biofeedback Electric Stimulation Next Visit Focus/Plan Next Note Type Treatment Note
--- NOTE | 2018-01-26 15:01 | PT.OPPOC ---
Current Diagnoses Uterovaginal prolapse, unspecified (01/25/18) Female genital prolapse, unspecified (01/25/18) Pelvic and perineal pain (01/25/18) Provider Visit Care Team Role Provider Type Lindsey Tineo PA-C Family Provider Non-Staff Primary Care Provider Specialty: Medical Address: [address] [place] [address], [id number] Email: Denise Jones MD Attending Provider Physician Specialty: RIVER TRANSPORTATION WORKER Address: [address] [place] [address], [address] Email: [email or web address] Plan Of Care PT-OP-T Assessment and Plan Start: 01/26/18 07:38 Freq: Status: Active Protocol: Document 01/25/18 11:15 AMB (Rec: 01/26/18 14:58 AMB [email or web address]) Physical Therapy Assessment Rehab Potential Rehabilitation Potential Good Evaluation Complexity Number of Personal Factors/Comorbidities 1-2 Number of Body Systems Impaired 4 or More Clinical Presentation at Evaluation Evolving Impairments Impairments Functional Activities Pain Soft Tissue Mobility Strength Goals Three Impairment Strength Short Term Goal (STG) The patient will be independent with a pelvic floor strengthening HEP. STG Duration 6 weeks Child Protective Investigator Goal (LTG) The patient will show improved strength so that Two Impairment Continence Short Term Goal (STG) The patient will improve her continence so that she can cough without leaking. STG Duration 6 weeks Penitentiary Goal (LTG) The patient will decrease her nocturia to 1x/night or less. LTG Duration 12 weeks One Impairment Pain Short Term Goal (STG) The patient will hold her bladder for 2 hours with 4/10 pain or less. STG Duration 6 weeks Child Protective Investigator Goal (LTG) The patient will engage in sexual activity without urinary leakage and with pain of 4/10 or less. LTG Duration 12 weeks Assessment Summary Assessment Sophie attends physical therapy with multiple pelvic floor concerns including pelvic pain that radiates into her abdomen, prolapse, painful intercourse, urinary frequency , and stress incontinence. She presents with poor pelvic floor strength and endurance. Her abdominal pain is reproduced both by palpation to her posterior pelvic floor and to palpation of her abdomen. She will benefit from pelvic floor and hip stability training with manual therapy to reduce her pain. Her weight and the distance she lives from the PT clinic may be limiting factors. Physical Therapy Plan Frequency and Duration Frequency of Treatment 1x/Week Duration of Treatment 12 weeks Plan of Care Start Date 01/25/18 Plan of Care End Date 04/19/18 Therapeutic Interventions Therapeutic Interventions Home Exercise Program Manual Therapy Neuromuscular Re-education Self-Care/Home Management Soft Tissue Mobilization Therapeutic Activities Therapeutic Exercises Modalities Biofeedback Electric Stimulation Next Visit Focus/Plan Next Note Type Treatment Note Plan of Care Dates Plan of Care Start Date 01/25/18 Plan of Care End Date 04/19/18 Please Sign and Return: I have reviewed this Plan of Care and certify that the skilled therapy services above are required to meet the patient?s needs. Physician Signature Date Printed Name and Credentials Clinical Instructor Signature Printed Name and Credentials
--- NOTE | 2018-04-22 15:00 | PT.OTN ---
Current Diagnoses Uterovaginal prolapse, unspecified (04/22/18) Female genital prolapse, unspecified (04/22/18) Pelvic and perineal pain (04/22/18) Physical Therapy Treatment Note PT-OP-A Visit Information Start: 01/26/18 07:38 Freq: Status: Active Protocol: Document 04/22/18 13:45 AMB (Rec: 04/22/18 13:46 AMB [id number]) Out-Patient Physical Therapy Visit Information Visit Information Visit Type Progress Note Visit Start Time 13:45 Visit Stop Time 14:30 Total Visit Minutes 45 Visit Number 2 Evaluation Information Evaluation Date 01/26/18 PT-OP-B Current Condition Start: 01/26/18 07:38 Freq: Status: Active Protocol: Document 01/25/18 11:15 AMB (Rec: 01/26/18 07:59 AMB [email or web address]) Current Condition History of Current Condition Onset Date 2 years Current Complaints pelvic pain, frequent urination with urgency, History of Current Condition The patient reports until 5 months ago, she was using alcohol every day. She thought that her symptoms were because of that, but she has been abstaining from alcohol, and she continues to have pain and urinary frequency and urgency. She had a vaginal 8 years ago with tearing , and a tubal ligation 6 years ago. She thinks the symptoms started about 5 years ago but have been worsening. Her pain is abdominal in nature, with back pain and upper leg weakness. She reports she urinates every 45 minutes or else her pain increases (she can hold it longer than that but her pain increases). She notes stress incontinence symptoms (small leaks throughout the day with cough sneeze, worse with full bladder). She also reports painful intercourse- burning at the perineum and a deep ache abdominally. Treatment Goals Patient/Caregiver Goals Relieve pain, decrease urination Prior Functional Status Baseline Function- ADL's Independent Baseline Function- Mobility Independent Current Functional Impairments (Reported) Functional Limitations- ADL's Painful intercourse, frequent urination Personal Factors Other Personal Factors That May Effect Pt lives on [facility], BMI Therapy/Recovery 47.8 PT-OP-C Subjective Start: 01/26/18 07:38 Freq: Status: Active Protocol: Document 04/22/18 13:45 AMB (Rec: 04/22/18 14:10 AMB [id number]) OP-PT Subjective Patient Comments Patient Comments The patient PT-OP-I Pelvic Floor Start: 01/26/18 07:38 Freq: Status: Active Protocol: Document 01/25/18 11:15 AMB (Rec: 01/26/18 14:32 AMB [email or web address]) Pelvic Floor Assessment Urine Pelvic Floor Surgery Yes: tubal ligation Urinary Symptoms Dysuria Urge Sensation Prolapse Incomplete Emptying Falling Out Feeling/Heavy Pain Leakage Size Small Leakage Cause Cough Sneeze Urge Leaks Per Day constant Voiding Frequency every 45 min Nocturia 4 Pads Used In 24 Hours 0 Bowel Bowel Movement Frequency 3-4x/day [place] Stool Chart Type 1-7 4 Pelvic Clock Pelvic Clock 12-3 Tenderness Pelvic Clock 3-6 Tenderness Pelvic Clock 6-9 Tenderness Pelvic Clock 9-12 Tenderness Pelvic Clock Other pelvic floor is low in tone throughout Prolapse Cystocele Grade 2 Rectocele Grade 2 Prolapse Comments Descends with valsalva Perineal Descent Resting Present Bearing Present SEMG (uV) Baseline 4 Quick Contraction 6 Recruitment Pattern Poor/Slow Relaxation Good Stability of Hold Fair SEMG Stability of Rest Good Contraction Ability Voluntary Contraction Weak Voluntary Relaxation Moderate Manual Muscle Testing Left 1 Manual Muscle Testing Right 1 Manual Muscle Testing Anterior 1 Manual Muscle Testing Posterior 3 Muscle Endurance (Seconds) 3 PT-OP-J Posture/Palpation/Skin Start: 01/26/18 07:38 Freq: Status: Active Protocol: Document 01/25/18 11:15 AMB (Rec: 01/26/18 14:32 AMB [email or web address]) Palpation Assessment Location One Palpation Location Abdomen Palpation Findings Spasm Muscle Guarding Tenderness Palpation Details Tenderness laterally on abdomen PT-OP-Q Treatments Start: 01/26/18 07:38 Freq: Status: Active Protocol: Document 04/22/18 13:45 AMB (Rec: 04/24/18 11:06 AMB [email or web address]) Therapeutic Exercises Supine Exercises 3 Supine Exercise Name quick flicks and long holds with legs on bolster Comments hands on stomach to reduce abs 2 Supine Exercise Name hip add isometric Comments on bolster 1 Supine Exercise Name hip abd Resistance #3 theraband Comments on bolster PT-OP-T Assessment and Plan Start: 01/26/18 07:38 Freq: Status: Active Protocol: Document 04/22/18 13:45 AMB (Rec: 04/24/18 11:04 AMB [email or web address]) Physical Therapy Assessment Goals Three Impairment Strength Short Term Goal (STG) The patient will be independent with a pelvic floor strengthening HEP. STG Duration 6 weeks Two Impairment Continence Short Term Goal (STG) The patient will improve her continence so that she can cough without leaking. STG Duration 6 weeks Documentation Lead Goal (LTG) The patient will decrease her nocturia to 1x/night or less. LTG Duration 12 weeks One Impairment Pain Short Term Goal (STG) The patient will hold her bladder for 2 hours with 4/10 pain or less. STG Duration 6 weeks Documentation Lead Goal (LTG) The patient will engage in sexual activity without urinary leakage and with pain of 4/10 or less. LTG Duration 12 weeks Assessment Summary Assessment The patient returns to physical therapy following D&C which she reports helped her pain considerably. She continues to have prolapse concerns, which is why she has returned to PT. She has been trying to do Kegel's at home while sitting, but continues to feel the prolapse especially when she needs to have a bowel movement. Since she was not seen between eval and this progress note because she wanted to focus on her surgery, she has not made significant pelvic floor strength gains, but is now at a place where she can focus on that more. She would like to continue with PT now, but we will need to get an insurance date extension. Physical Therapy Plan Frequency and Duration Frequency of Treatment 1x/Week Duration of Treatment 8 weeks Plan of Care Start Date 04/22/18 Plan of Care End Date 06/17/18 Therapeutic Interventions Therapeutic Interventions Home Exercise Program Manual Therapy Neuromuscular Re-education Self-Care/Home Management Soft Tissue Mobilization Therapeutic Activities Therapeutic Exercises Modalities Biofeedback Electric Stimulation Next Visit Focus/Plan Next Note Type Treatment Note
--- NOTE | 2018-04-22 15:00 | PT.OPPOC ---
Current Diagnoses Uterovaginal prolapse, unspecified (04/22/18) Female genital prolapse, unspecified (04/22/18) Pelvic and perineal pain (04/22/18) Provider Visit Care Team Role Provider Type Lindsey Tineo PA-C Family Provider Non-Staff Primary Care Provider Specialty: Medical Address: [address] [place] [address], [id number] Email: Denise Jones MD Attending Provider Physician Specialty: WAREHOUSE PRICING AND INVENTORY CLERK Address: [address] [place] [address], [address] Email: [email or web address] Plan Of Care PT-OP-T Assessment and Plan Start: 01/26/18 07:38 Freq: Status: Active Protocol: Document 04/22/18 13:45 AMB (Rec: 04/24/18 11:04 AMB [email or web address]) Physical Therapy Assessment Goals Three Impairment Strength Short Term Goal (STG) The patient will be independent with a pelvic floor strengthening HEP. STG Duration 6 weeks Two Impairment Continence Short Term Goal (STG) The patient will improve her continence so that she can cough without leaking. STG Duration 6 weeks Patient Flow Coordinator Goal (LTG) The patient will decrease her nocturia to 1x/night or less. LTG Duration 12 weeks One Impairment Pain Short Term Goal (STG) The patient will hold her bladder for 2 hours with 4/10 pain or less. STG Duration 6 weeks Patient Flow Coordinator Goal (LTG) The patient will engage in sexual activity without urinary leakage and with pain of 4/10 or less. LTG Duration 12 weeks Assessment Summary Assessment The patient returns to physical therapy following D&C which she reports helped her pain considerably. She continues to have prolapse concerns, which is why she has returned to PT. She has been trying to do Kegel's at home while sitting, but continues to feel the prolapse especially when she needs to have a bowel movement. Since she was not seen between eval and this progress note because she wanted to focus on her surgery, she has not made significant pelvic floor strength gains, but is now at a place where she can focus on that more. She would like to continue with PT now, but we will need to get an insurance date extension. Physical Therapy Plan Frequency and Duration Frequency of Treatment 1x/Week Duration of Treatment 8 weeks Plan of Care Start Date 04/22/18 Plan of Care End Date 06/17/18 Therapeutic Interventions Therapeutic Interventions Home Exercise Program Manual Therapy Neuromuscular Re-education Self-Care/Home Management Soft Tissue Mobilization Therapeutic Activities Therapeutic Exercises Modalities Biofeedback Electric Stimulation Next Visit Focus/Plan Next Note Type Treatment Note Plan of Care Dates Plan of Care Start Date 04/22/18 Plan of Care End Date 06/17/18 Please Sign and Return: I have reviewed this Plan of Care and certify that the skilled therapy services above are required to meet the patient?s needs. Physician Signature Date Printed Name and Credentials Clinical Instructor Signature Printed Name and Credentials
--- NOTE | 2018-07-19 14:42 | PT.OPDS ---
Current Diagnoses Uterovaginal prolapse, unspecified (04/22/18) Female genital prolapse, unspecified (04/22/18) Pelvic and perineal pain (04/22/18) Provider Visit Care Team Role Provider Type Lindsey Tineo PA-C Family Provider Non-Staff Primary Care Provider Specialty: Medical Address: [address] [place] [address], [address], [place], [address] Email: Denise Jones MD Attending Provider Physician Specialty: COLLEGE BASKETBALL COACH Address: [address] [place] [address], [address] Email: [email or web address] Visit Number Visit Number 2 Discharge Summary PT-OP-B Current Condition Start: 01/26/18 07:38 Freq: Status: Active Protocol: Document 01/25/18 11:15 AMB (Rec: 01/26/18 07:59 AMB [email or web address]) Current Condition History of Current Condition Onset Date 2 years Current Complaints pelvic pain, frequent urination with urgency, History of Current Condition The patient reports until 5 months ago, she was using alcohol every day. She thought that her symptoms were because of that, but she has been abstaining from alcohol, and she continues to have pain and urinary frequency and urgency. She had a vaginal 8 years ago with tearing , and a tubal ligation 6 years ago. She thinks the symptoms started about 5 years ago but have been worsening. Her pain is abdominal in nature, with back pain and upper leg weakness. She reports she urinates every 45 minutes or else her pain increases (she can hold it longer than that but her pain increases). She notes stress incontinence symptoms (small leaks throughout the day with cough sneeze, worse with full bladder). She also reports painful intercourse- burning at the perineum and a deep ache abdominally. Treatment Goals Patient/Caregiver Goals Relieve pain, decrease urination Prior Functional Status Baseline Function- ADL's Independent Baseline Function- Mobility Independent Current Functional Impairments (Reported) Functional Limitations- ADL's Painful intercourse, frequent urination Personal Factors Other Personal Factors That May Effect Pt lives on [facility], BMI Therapy/Recovery 47.8 PT-OP-C Subjective Start: 01/26/18 07:38 Freq: Status: Active Protocol: Document 04/22/18 13:45 AMB (Rec: 04/22/18 14:10 AMB [id number]) OP-PT Subjective Patient Comments Patient Comments The patient PT-OP-I Pelvic Floor Start: 01/26/18 07:38 Freq: Status: Active Protocol: Document 01/25/18 11:15 AMB (Rec: 01/26/18 14:32 AMB [email or web address]) Pelvic Floor Assessment Urine Pelvic Floor Surgery Yes: tubal ligation Urinary Symptoms Dysuria Urge Sensation Prolapse Incomplete Emptying Falling Out Feeling/Heavy Pain Leakage Size Small Leakage Cause Cough Sneeze Urge Leaks Per Day constant Voiding Frequency every 45 min Nocturia 4 Pads Used In 24 Hours 0 Bowel Bowel Movement Frequency 3-4x/day [place] Stool Chart Type 1-7 4 Pelvic Clock Pelvic Clock 12-3 Tenderness Pelvic Clock 3-6 Tenderness Pelvic Clock 6-9 Tenderness Pelvic Clock 9-12 Tenderness Pelvic Clock Other pelvic floor is low in tone throughout Prolapse Cystocele Grade 2 Rectocele Grade 2 Prolapse Comments Descends with valsalva Perineal Descent Resting Present Bearing Present SEMG (uV) Baseline 4 Quick Contraction 6 Recruitment Pattern Poor/Slow Relaxation Good Stability of Hold Fair SEMG Stability of Rest Good Contraction Ability Voluntary Contraction Weak Voluntary Relaxation Moderate Manual Muscle Testing Left 1 Manual Muscle Testing Right 1 Manual Muscle Testing Anterior 1 Manual Muscle Testing Posterior 3 Muscle Endurance (Seconds) 3 PT-OP-J Posture/Palpation/Skin Start: 01/26/18 07:38 Freq: Status: Active Protocol: Document 01/25/18 11:15 AMB (Rec: 01/26/18 14:32 AMB [email or web address]) Palpation Assessment Location One Palpation Location Abdomen Palpation Findings Spasm Muscle Guarding Tenderness Palpation Details Tenderness laterally on abdomen PT-OP-T Assessment and Plan Start: 01/26/18 07:38 Freq: Status: Active Protocol: Document 07/19/18 14:32 AMB (Rec: 07/19/18 14:42 AMB [email or web address]) Physical Therapy Assessment Goals Three Impairment Strength Short Term Goal (STG) The patient will be independent with a pelvic floor strengthening HEP. STG Duration NOT MET Two Impairment Continence Short Term Goal (STG) The patient will improve her continence so that she can cough without leaking. STG Duration NOT MET Chief Design Drafter Goal (LTG) The patient will decrease her nocturia to 1x/night or less. LTG Duration NOT MET One Impairment Pain Short Term Goal (STG) The patient will hold her bladder for 2 hours with 4/10 pain or less. STG Duration NOT MET Long-Term Goal (LTG) The patient will engage in sexual activity without urinary leakage and with pain of 4/10 or less. LTG Duration NOT MET Assessment Summary Assessment Pt canceled her last appointment and has not been seen since April. At that time she was doing well after her D&C, as far as her pain, but continued to have pelvic floor weakness. She was instructed in strengthening, but has not been seen since. Physical Therapy Plan Discharge Physical Therapy Discharge Reasons No Longer Attending PT
== END 2018-07-19 16:34 | disposition home or self-care (01) ==
LOC: PHYS 13:45
PROVIDERS: Family Provider Physician Assistant; PCP Physician Assistant; Visit Provider Obstetrics & Gynecology
DX: R10.2 Pelvic and perineal pain (principal); N81.4 Uterovaginal prolapse, unspecified; N81.9 Female genital prolapse, unspecified
CPT/HCPCS: 97110; 97162

== ENCOUNTER → 2020-07-25 11:02 | Outpatient (CLI) | payer OTHER, MEDICAID, SELFPAY ==
[2020-07-25 12:05] LABS: COVID19 -Nasal RAPID Negative (Negative)
== END ==
PROVIDERS: Family Provider Physician Assistant; PCP Physician Assistant; Visit Provider Specialist
DX: Z20.822 Contact with and (suspected) exposure to COVID-19 (principal)
CPT/HCPCS: 87635

== ENCOUNTER 2020-07-25 13:39 | Day surgery (SDC) | payer OTHER, MEDICAID, SELFPAY ==
[2020-07-25] VITALS (7 sets, daily range): BP systolic 108–134; BP diastolic 64–75; PULSE 60–72; RESP 10–16; TEMP 36.6–36.9; O2SAT 98–100; BMI 24.1
--- NOTE | 2020-07-25 | PATH_ITS ---
[facility] Accession Number: [id number] . 01 Material submitted: . stomach - STOMACH RANDOM BIOPSIES . 02 Diagnosis: Stomach, Random Biopsies: Antral and body-type mucosa with mild chronic gastritis. No evidence of Helicobacter on H/E stain. Negative for intestinal metaplasia. Negative for dysplasia and malignancy. [facility] 07/29/2020 1453 Local . 02 Comment: An immunohistochemical stain will be performed to evaluate for Helicobacter organisms and the results reported as an addendum. . 02 Electronically signed: . Haylee Tierney MD, Pathologist NPI- [id number] . 01 Gross description: . STOMACH RANDOM BIOPSIES: Received in formalin are 5 fragment(s) of perez, soft tissue measuring 0.4 x 0.4 x 0.3 cm to 0.2 x 0.2 x 0.1 cm submitted entirely in 1 cassette(s) /QBJ 07/26/2020 0651 Local . 02 Pathologist provided ICD-10: D64.9 . 02 CPT . 405116, [id number] Performed at: 01 [facility] [address], [place], [place] [id number] MD Troy Laureano MD Phone: [phone] Performed at: 02 [facility] [address] [place], [place] [id number] MD Haylee Tierney MD Phone: [phone]
[2020-07-25] MEDS: LACTATED RINGERS 1,000 ML 200 ML IV (14:30)
--- NOTE | 2020-07-25 15:57 | PM.PREOP ---
Pre-operative Note COVID-19 COVID-19 status: Negative Result date/Date tested (Pos, Neg/Pending): 07/24/20 Interval Note History & Physical reviewed/Exam performed by Physician: Yes Changes to H&P: No ASA Class (for procedural sedation): II
[2020-07-25] MEDS: LIDOCAINE 4% SOLN 50 ML 20 ML TOP (16:05)
[2020-07-25] MEDS: fentaNYL 250 MCG/5 ML INJ IV (16:31)
[2020-07-25] MEDS: MIDAZOLAM 5 MG/5 ML VIAL IV (16:31)
--- NOTE | 2020-07-25 17:06 | PM.OP.ENDO ---
Operative Date/Time/Diagnoses Date of procedure: 07/25/20 Time of procedure: 17:00 Pre-op diagnosis: Anemia of uncertain etiology Post-op diagnosis: same Procedure & Clinicians Study performed: EGD with cold biopsy. Colonoscopy. Same procedure as scheduled: Yes Indications: Try to determine cause of anemia Surgeon: Harley Mac Procedure Notes SCOAP/Timeout: Performed Procedure in detail: The patient had topical anesthetic applied to oropharynx. She was placed in left lateral decubitus position and underwent IV sedation directed by the surgeon consisting of fentanyl and Versed. A bite block was inserted and the scope was advanced through it into the esophagus. The esophagus was unremarkable. GE junction was noted at 36 cm from the incisors.. The patient is post a sleeve gastrectomy for obesity. Thus the visible stomach was a long tubular structure. I saw no evidence of blood or recent bleeding or ulceration. The whole structure looks slightly hyperemic but not really what I would call consistent with gastritis.. The pyloric channel was widely patent. The duodenum was unremarkable to the 4th part. The scope was brought back into the stomach and I took random biopsies to evaluate for any subclinical inflammation. ]. The scope was straightened and brought out through the esophagus again. No lesions were seen. The scope was removed and the patient tolerated the procedure well. Attention was turned to the colon. The patient was placed in the left lateral decubitus position and underwent further IV sedation directed by the surgeon consisting of fentanyl and Versed. Digital exam was unremarkable. The scope was inserted and advanced through the rectum into the sigmoid, descending, transverse, and ascending colon. This was rather slow growing because the prep was less than optimal and I had to irrigate and suction a great deal of liquid stool. In any event, the cecum was reached identified by the ileocecal valve and the appendiceal opening. The ileocecal valve was briefly cannulated. The terminal ileum was normal in appearance. The scope was gradually brought out. No Polyps were found. A rare sigmoid diverticulum was seen. The scope ultimately was retroflexed in the rectum. The appearance was remarkable for small internal hemorrhoids without ulceration. Anal canal was rather long. There were no lesions in it however.. The scope was removed and the patient tolerated the procedure well. Prep was ultimately adequate with extensive irrigation and suction. No obvious cause of this patient's anemia was found on this upper and lower intestinal endoscopy. Scope withdrawal time: 9 minutes Sedation minutes: 43 Findings: diverticulosis (Rare sigmoid) and other findings (Post sleeve gastrectomy ) Specimen(s): other (Random gastric biopsies) Complications: none Post-procedure Recommendations: Colonscopy in 10 years Follow up: as needed Disposition: PACU
== END 2020-07-25 17:35 | disposition home or self-care (01) ==
PROVIDERS: Family Provider Physician Assistant; PCP Physician Assistant; Referring Provider Physician Assistant; Visit Provider Specialist
PROC: 0DJ08ZZ Inspection of Upper Intestinal Tract, Via Natural or Artificial Opening Endoscopic (ICD-10-PCS; CPT 43235; principal; 2020-07-25 15:15)
PROC: 0DJD8ZZ Inspection of Lower Intestinal Tract, Via Natural or Artificial Opening Endoscopic (ICD-10-PCS; CPT 45378; 2020-07-25 15:15)
DX: D50.9 Iron deficiency anemia, unspecified (principal); R19.5 Other fecal abnormalities; Z98.84 Bariatric surgery status; F17.210 Nicotine dependence, cigarettes, uncomplicated; F41.9 Anxiety disorder, unspecified; F32.9 Major depressive disorder, single episode, unspecified; Z20.822 Contact with and (suspected) exposure to COVID-19; K57.30 Diverticulosis of large intestine without perforation or abscess without bleeding; K64.8 Other hemorrhoids; K29.50 Unspecified chronic gastritis without bleeding
CPT/HCPCS: 43239; 45378; 87635; 99152; 99153; C9803; J2250; J3010

== ENCOUNTER → 2020-07-30 09:49 | Outpatient (CLI) | payer OTHER, MEDICAID, SELFPAY ==
[2020-07-30 10:14] LABS: COVID19 -Nasal RAPID Negative (Negative)
== END ==
PROVIDERS: Family Provider Physician Assistant; PCP Physician Assistant; Visit Provider Obstetrics & Gynecology
DX: Z01.812 Encounter for preprocedural laboratory examination (principal); Z20.822 Contact with and (suspected) exposure to COVID-19
CPT/HCPCS: 87635

== ENCOUNTER 2020-07-30 10:55 | Day surgery (SDC) | payer OTHER, MEDICAID, SELFPAY ==
[2020-07-30] VITALS (7 sets, daily range): BP systolic 95–109; BP diastolic 56–67; PULSE 45–76; RESP 12–16; TEMP 36.4–36.8; O2SAT 100; BMI 24.1
--- NOTE | 2020-07-30 | PATH_ITS ---
[facility] Accession Number: [id number] . 01 Material submitted: . endometrium - ENDOMETRIAL CURETTINGS . 01 Clinical history: . SDC . 02 Diagnosis: Endometrium, Curettage: Proliferative endometrium with no diagnostic abnormality. Negative for atypical hyperplasia or malignancy. MRV 08/02/2020 1259 Local . 02 Electronically signed: . Jose Desir MD, PhD, Pathologist NPI- [id number] . 01 Gross description: . The specimen is received in formalin, labeled endometrial curettings and consists of multiple perez-pink fragments of soft tissue admixed with mucus and clotted blood measuring 3.0 x 2.5 x 0.5 cm in aggregate. The specimen is filtered and entirely submitted in cassette A1. (EA:[id number]) /MRV 07/31/2020 1402 Local . 02 Pathologist provided ICD-10: N94.6, N92.0 . 02 CPT . 312101 Performed at: 01 [facility] [address] [facility], [place], [place] [id number] MD Troy Laureano MD Phone: [phone] Performed at: 02 [facility] [address] [place], [place] [id number] MD Haylee Tierney MD Phone: [phone]
[2020-07-30] MEDS: LACTATED RINGERS 1,000 ML 100 ML IV (11:28)
--- NOTE | 2020-07-30 11:43 | PM.PREOP ---
Pre-operative Note COVID-19 COVID-19 status: Negative Result date/Date tested (Pos, Neg/Pending): 07/30/20 Interval Note History & Physical reviewed/Exam performed by Physician: Yes Changes to H&P: No H&P completed within 30 days and has changed as indicated here:: 07/03/20
--- NOTE | 2020-07-30 12:30 | SUR.OPER ---
Lithotomy on padded OR bed, head on pillow, arms secured on padded arm boards at <90 degrees abduction. Legs secured in padded yellow fins stirrups.
--- NOTE | 2020-07-30 12:32 | PM.GYNOP.1 ---
Operative Date/Time/Diagnoses Date of procedure: 07/30/20 Time of procedure: 12:32 Pre-op diagnosis: MENORRHAGIA DYSMENORRHEA ANEMIA Post-op diagnosis: same Procedure & Clinicians Procedure: Procedures Operation Date: 07/30/20 12:00 Actual Procedures Side Surgeon p Nida Endometrial Ablation, D&C Hysteroscopy Denise Jones MD Indications: MENORRHAGIA DYSMENORRHEA ANEMIA Surgeon: Denise Jones Anesthesia Type: General (LMA) Operative Notes Findings: SEVEN WEEK SIZE ANTEVERTED UTERUS BOTH FALLOPIAN TUBE OSTIA OBSERVED VERY THICKENED ENDOMETRIAL LINING Closure Type: not applicable Specimen(s): endometrial curettings Estimated blood loss (mL): 10 Blood products transfused: none Procedure in detail: The patient was taken to the operating room where she was placed in the dorsal supine position. After adequate LMA general anesthesia was achieved, she was placed in the dorsal lithotomy position, and prepped and draped in the usual sterile fashion. A time-out was performed. A bivalve speculum was placed into the vagina and the anterior lip of the cervix grasped with a single-tooth tenaculum. Cervical os was sequentially dilated to the # 8 Hegar dilator. The hysteroscope passed easily into the endometrial cavity. Both fallopian tube ostia were observed. There were no polyps. There was significant thickening of the endometrial lining. The hysteroscope was removed. Sharp curettage was performed yielding a large amount of endometrial curettings. The uterus was measured from the internal os to the fundus and measured 5 cm. This was set on the NovaSure generator and the catheter. The catheter passed easily into the endometrial cavity and was opened. The width of the cavity was 4.5 cm. This was set on the generator. This indicated a power of 124 w. The cervix was capped, the cavity assessment was performed and passed. The cycle was initiated and lasted 92 seconds. At the completion of the cycle the cervix was on capped, the NovaSure catheter was closed and removed from the uterus without difficulty. The single-tooth tenaculum was removed from the anterior lip of the cervix. The bivalve speculum was removed from the vagina. Sponge, lap, and instrument counts were correct x2. Patient tolerated the procedure well, and was taken to PACU in stable conditions. Complications: none Post-operative Condition: stable Disposition: PACU Plan for aftercare: Home after recovery
--- NOTE | 2020-07-30 12:38 | SUR.OPER ---
novasure: power 124, length=5.0, width=4.5, 92 seconds
[2020-07-30] MEDS: OXYCODONE/ACETAMINOPHEN 5/325 TABLET 1 TAB PO (12:59)
[2020-07-30] MEDS: fentaNYL 100 MCG/2 ML INJ IV (13:05)
--- NOTE | 2020-07-30 13:30 | SUR.PHASEI ---
Spoke with Dr Dela Cruz and reported VS HR 45, BP 100/59, O2 Sat RA 100%, skin warm and dry, affect calm and relaxed. Pt conversing easily and appropriately. Dr Dela Cruz aware of bradycardia. No orders recieved. Communicates appreciative of information.
[2020-07-30] MEDS: OXYCODONE IR 5 MG TABLET PO (13:33)
== END 2020-07-30 13:57 | disposition home or self-care (01) ==
PROVIDERS: Family Provider Physician Assistant; PCP Physician Assistant; Referring Provider Physician Assistant; Visit Provider Obstetrics & Gynecology
PROC: 0U5B8ZZ Destruction of Endometrium, Via Natural or Artificial Opening Endoscopic (ICD-10-PCS; CPT 58563; principal; 2020-07-30 12:00)
DX: N92.0 Excessive and frequent menstruation with regular cycle (principal); N94.6 Dysmenorrhea, unspecified; D64.9 Anemia, unspecified; F17.210 Nicotine dependence, cigarettes, uncomplicated; Z20.822 Contact with and (suspected) exposure to COVID-19
CPT/HCPCS: 58563; 87635; J1100; J1885; J2250; J2405; J2704; J3010

== ENCOUNTER → 2023-12-15 16:41 | Outpatient (CLI) | payer OTHER, MEDICAID, SELFPAY | PROVIDERS: Family Provider Physician Assistant; PCP Physician Assistant; Visit Provider Physician Assistant Medical | DX: S91.012A Laceration without foreign body, left ankle, initial encounter (principal) | CPT/HCPCS: 87070; 87075; 87077; 87147; 87186; 87205 ==